=== PATIENT | female | born 1965 | race Caucasian/White ===

== ENCOUNTER 2017-11-11 13:40 | Emergency (ER) | payer OTHER ==
[~2017-11-11] VITALS: Ht 172.7 cm; Wt 109.0 kg
[~2017-11-11 13:40] MED LIST: HYDROCHLORO25 MG/TAB PO; LOPRESSOR 550 MG/TAB PO; MACRODANTIN100 MG PO; NEXIUM40 M1 PO; PRAVASTATIN SOD40 MG PO; PRISTIQ50 MG PO; PYRIDIUM200 MG PO
[2017-11-11 14:44] LABS: HEMATOCRIT 41.4 % (37.0-47.0); HEMOGLOBIN 14.7 g/dl (12.0-16.0); IMMATURE GRANULOCYTES 0.4 % (0.0-5.0); MEAN CELL VOLUME 88.7 fL CALC (80.0-100.0); MEAN CORPUSCULAR HGB 31.5 pG CALC (26.0-32.0); MEAN CORPUSCULAR HGB CONC 35.5 g/L CALC (32.0-36.0); NEUT# 4.58 thou/uL (2.00-7.15); RED BLOOD COUNT 4.67 mill/uL (4.20-5.60); RED CELL DISTRI WIDTH 12.5 % (11.5-15.5)
[2017-11-11] MEDS ORDERED: FROVATRIPTAN S2.5 MG PO (14:46)
[2017-11-11] MEDS ORDERED: LOVAZA1 CAP PO (14:46)
[2017-11-11] MEDS ORDERED: AIMOVIG PO (14:47)
[2017-11-11 15:13] LABS: ANION GAP 18 (6-22 (CALC)); BUN 17 mg/dL (7-17); BUN/CREATININE RATIO 20 (12-20 (CALC)); CARBON DIOXIDE 25 mmol/l (22-30); CHLORIDE 104 mmol/l (95-108); CREATININE 0.9 mg/dL (0.5-1.0); GFR > 60 ML/MIN (>=60 (CALC)); GFR FOR AFR.AMER. > 60 ML/MIN (>=60 (CALC)); POTASSIUM 3.7 mmol/l (3.5-5.1); SODIUM 143 mmol/l (137-146)
[2017-11-11] MEDS ORDERED: AMLODIPINE5 MG PO (16:18)
[2017-11-11 16:21] VITALS: BP 181/64
== END 2017-11-11 16:30 | disposition home or self-care (01) | DRG 305 ==
LOC: ED 13:40
PROVIDERS: Family Medicine
DX: I10 Essential (primary) hypertension (principal)